=== PATIENT | male | born 1980 | race Caucasian/White ===

== ENCOUNTER 2016-12-22 02:10 | Emergency (ER) | payer OTHER ==
[~2016-12-22] VITALS: Ht 167.6 cm; Wt 59.1 kg
[2016-12-22] MEDS ORDERED: methylPREDNISolone 125 MG (Solu-MEDROL) VIAL IM ONE (02:15)
[2016-12-22] MEDS ORDERED: ALBUTEROL/IPRATROPIUM 3MG-0.5MG/3ML (DUONEB) NEB VIAL INH ONE (02:15)
[2016-12-22] MEDS ORDERED: ED- ALBUTEROL HFA (VENTOLIN HFA) 8 GM INHALER IH ONE (02:55)
[2016-12-22] MEDS ORDERED: PRED20TA PO (03:02)
[2016-12-22 03:17] VITALS: BP 189/131
--- NOTE | 2016-12-22 03:59 | NUR ---
attempted to call pt back to request a recheck of his B/P per Dr. Melendrez, pt's phone number given was not a working number
== END 2016-12-22 03:22 | disposition home or self-care (01) ==
LOC: ED 02:24
DX: J45.901 Unspecified asthma with (acute) exacerbation (principal)
CPT/HCPCS: 94640; 96372; 99283; J2930; 99282